=== PATIENT | male | born 1950 | race Caucasian/White ===

== ENCOUNTER 2021-03-11 20:11 | Emergency (ER) | payer MEDICARE, OTHER ==
[~2021-03-11] VITALS: Ht 172.7 cm; Wt 145.1 kg
[~2021-03-11 20:11] MED LIST: ATEN50TA PO; GLYB5TAB7 PO; METF-442 PO
[2021-03-11 20:16] VITALS: BP 160/84
--- NOTE | 2021-03-11 20:18 | NUR ---
PT AAOX4. BIBRA FROM HOME C/O R SIDED CP SINCE 1930. STATED HE WAS TAKING A NAP IN FRONT OF HIS AC. PT STATED "I JUST WANT TO MAKE SURE IT IS NOT A HEART ATTACK." IV PLACED ON RAC 20G, BLOOD WORK COLLECTED, SENT TO LAB. AWAITING ER MD FOR EVAL AND ORDERS.
[2021-03-11 20:48] LABS: BASOPHILS # (AUTO) 0.1 K/uL (0.0-0.2); BASOPHILS % (AUTO) 1.1 % (0.0-2.0); EOSINOPHILS % (AUTO) 3.9 % (0.0-6.0); HEMATOCRIT 46 % (39-51); HEMOGLOBIN 15.1 g/dL (13.5-17.5); LYMPHOCYTES # (AUTO) 2.4 K/uL (0.8-4.8); LYMPHOCYTES % (AUTO) 26.6 % (20.0-44.0); MEAN CORPUSCULAR HGB CONC 33 g/dl (31.0-36.0); MEAN CORPUSCULAR VOLUME 91 fL (80-96); MONOCYTES # (AUTO) 0.8 K/uL (0.1-1.30); MONOCYTES % (AUTO) 8.8 % (2.0-12.0); NEUTROPHILS # (AUTO) 5.5 K/uL (1.8-8.9); NEUTROPHILS % (AUTO) 59.6 % (43.0-81.0); PLATELET COUNT (AUTO) 169 K/uL (150-450); RED BLOOD CELL COUNT(AUTO) 5.07 MIL/uL (4.5-6.0); WHITE BLOOD COUNT (AUTO) 9.2 K/uL (4.3-11.0)
--- NOTE | 2021-03-11 21:04 | NUR ---
AMBULATED TO THE RESTROOM AND BACK.
[2021-03-11 21:07] LABS: CALCIUM, SERUM 9.3 mg/dL (8.5-10.1); CARBON DIOXIDE 30 mmol/L (21-32); CHLORIDE 100 mmol/L (98-107); CREATININE 1.1 mg/dL (0.6-1.3); GLUCOSE 121 mg/dL (74-106); POTASSIUM 4.5 mmol/L (3.5-5.1); SODIUM SERUM 138 mmol/L (136-145); UREA NITROGEN, BLOOD 24 mg/dL (7-18)
[2021-03-11 21:12] LABS: ALANINE AMINOTRANSFERASE 29 U/L (12-78); ALBUMIN 3.5 g/dL (3.4-5.0); ALKALINE PHOSPHATASE 66 U/L (46-116); ASPARTATE AMINOTRANSFERASE 21 U/L (15-37); BILIRUBIN,DIRECT 0.1 mg/dL (0.0-0.2); BILIRUBIN,TOTAL 0.5 mg/dL (0.2-1.0); TOTAL PROTEIN, SERUM 8.2 g/dL (6.4-8.2)
--- NOTE | 2021-03-11 21:20 | NUR ---
XRAY AT BEDSIDE
--- NOTE | 2021-03-11 22:43 | NUR ---
Patient does not wish to proceed with medical care recommended by Dr. Sanchez. Patient given information related to possible complications, up to and including , which could occur as a result of leaving the hospital at this time. Patient verbalizes understanding of risks involved due to leaving against medical advice. Patient has signed AMA form.
--- NOTE | 2021-03-11 22:43 | NUR ---
IV removed. Catheter intact and site benign. Pressure and 4x4 applied to site. No bleeding noted.
== END 2021-03-11 23:19 | disposition left against medical advice (07) ==
LOC: ER 20:12
DX: R07.89 Other chest pain (principal); E11.9 Type 2 diabetes mellitus without complications; I10 Essential (primary) hypertension; I45.10 Unspecified right bundle-branch block; I44.4 Left anterior fascicular block; E78.00 Pure hypercholesterolemia, unspecified; Z98.890 Other specified postprocedural states; Z79.899 Other long term (current) drug therapy; Z79.84 Long term (current) use of oral hypoglycemic drugs
CPT/HCPCS: 36415; 71045-TC; 80048-TC; 80076-TC; 83880; 84484-TC; 85025-TC

== ENCOUNTER 2022-08-03 08:19 | Outpatient (CLI) | payer MEDICARE, OTHER ==
[2022-08-03] MEDS ORDERED: GENTAMICIN 0.1% CREAM 15 GM TUBE ONE (09:00)
[2022-08-03] MEDS ORDERED: CLOTRIMAZOLE 1% 15 GM TUBE TP ONE (09:00)
[2022-08-03 09:27] LABS: BASOPHILS % (AUTO) 0.4 % (0.0-2.0); HEMATOCRIT 45 % (39-51); HEMOGLOBIN 14.5 g/dL (13.5-17.5); LYMPHOCYTES # (AUTO) 1.5 K/uL (0.8-4.8); LYMPHOCYTES % (AUTO) 16.6 % (20.0-44.0); MEAN CORPUSCULAR HGB CONC 32 g/dl (31.0-36.0); MEAN CORPUSCULAR VOLUME 88 fL (80-96); MONOCYTES # (AUTO) 0.7 K/uL (0.1-1.30); MONOCYTES % (AUTO) 8.3 % (2.0-12.0); NEUTROPHILS # (AUTO) 6.4 K/uL (1.8-8.9); NEUTROPHILS % (AUTO) 71.7 % (43.0-81.0); PLATELET COUNT (AUTO) 222 K/uL (150-450); RED BLOOD CELL COUNT(AUTO) 5.09 MIL/uL (4.5-6.0); WHITE BLOOD COUNT (AUTO) 8.9 K/uL (4.3-11.0)
[2022-08-03 09:43] LABS: ALBUMIN 3.2 g/dL (3.4-5.0); CALCIUM, SERUM 9.2 mg/dL (8.5-10.1); POTASSIUM 4.3 mmol/L (3.5-5.1)
[2022-08-03 09:49] LABS: C-REACTIVE PROTEIN 3.8 mg/dL (0.0-0.9)
== END 2022-08-03 23:59 | disposition home health service (06) ==
LOC: WOU 08:19
PROVIDERS: ATTEND Podiatrist Foot & Ankle Surgery
DX: I87.313 Chronic venous hypertension (idiopathic) with ulcer of bilateral lower extremity (principal); L97.212 Non-pressure chronic ulcer of right calf with fat layer exposed; L97.828 Non-pressure chronic ulcer of other part of left lower leg with other specified severity; I89.0 Lymphedema, not elsewhere classified; B35.1 Tinea unguium; E66.01 Morbid (severe) obesity due to excess calories; Z68.43 Body mass index [BMI] 50.0-59.9, adult; E11.9 Type 2 diabetes mellitus without complications; Z79.4 Long term (current) use of insulin; Z79.84 Long term (current) use of oral hypoglycemic drugs
CPT/HCPCS: 11042; 11045; 36415; 80048-TC; 82040-TC; 85025-TC; 85652-TC; 86140-TC

== ENCOUNTER 2022-08-06 08:11 | Outpatient (CLI) | payer MEDICARE, OTHER ==
[2022-08-06] MEDS ORDERED: HYDROCORTISONE 1% CREAM 28.35 GM TUBE TP ONE (08:55)
[2022-08-06] MEDS ORDERED: CLOTRIMAZOLE 1% 15 GM TUBE TP ONE (08:55)
[2022-08-06] MEDS ORDERED: GENTAMICIN 0.1% CREAM 15 GM TUBE ONE ×2 (08:56→09:24)
== END 2022-08-06 23:59 | disposition home health service (06) ==
LOC: WOU 08:11
PROVIDERS: ATTEND Podiatrist Foot & Ankle Surgery
DX: I87.313 Chronic venous hypertension (idiopathic) with ulcer of bilateral lower extremity (principal); L97.828 Non-pressure chronic ulcer of other part of left lower leg with other specified severity; L97.812 Non-pressure chronic ulcer of other part of right lower leg with fat layer exposed; I89.0 Lymphedema, not elsewhere classified; E66.01 Morbid (severe) obesity due to excess calories; Z68.43 Body mass index [BMI] 50.0-59.9, adult; E11.9 Type 2 diabetes mellitus without complications; Z79.4 Long term (current) use of insulin; Z79.84 Long term (current) use of oral hypoglycemic drugs
CPT/HCPCS: 11042

== ENCOUNTER 2022-08-10 08:07 | Outpatient (CLI) | payer MEDICARE, OTHER ==
[2022-08-10] MEDS ORDERED: GENTAMICIN 0.1% CREAM 15 GM TUBE ONE ×2 (09:13)
== END 2022-08-10 23:59 | disposition home health service (06) ==
LOC: WOU 08:07
PROVIDERS: ATTEND Podiatrist Foot & Ankle Surgery
DX: I87.313 Chronic venous hypertension (idiopathic) with ulcer of bilateral lower extremity (principal); L97.828 Non-pressure chronic ulcer of other part of left lower leg with other specified severity; L97.812 Non-pressure chronic ulcer of other part of right lower leg with fat layer exposed; I89.0 Lymphedema, not elsewhere classified; L03.115 Cellulitis of right lower limb; E66.01 Morbid (severe) obesity due to excess calories; Z68.43 Body mass index [BMI] 50.0-59.9, adult; E11.9 Type 2 diabetes mellitus without complications; Z79.4 Long term (current) use of insulin; Z79.84 Long term (current) use of oral hypoglycemic drugs
CPT/HCPCS: G0463

== ENCOUNTER 2022-08-13 08:00 | Outpatient (CLI) | payer MEDICARE, OTHER | END 2022-08-13 23:59 | disposition home or self-care (01) | LOC: WOU 08:00 | PROVIDERS: ATTEND Podiatrist Foot & Ankle Surgery | DX: I87.313 Chronic venous hypertension (idiopathic) with ulcer of bilateral lower extremity (principal); L97.828 Non-pressure chronic ulcer of other part of left lower leg with other specified severity; L97.812 Non-pressure chronic ulcer of other part of right lower leg with fat layer exposed; I89.0 Lymphedema, not elsewhere classified; L03.115 Cellulitis of right lower limb; B96.5 Pseudomonas (aeruginosa) (mallei) (pseudomallei) as the cause of diseases classified elsewhere; E66.01 Morbid (severe) obesity due to excess calories; Z68.43 Body mass index [BMI] 50.0-59.9, adult; L60.2 Onychogryphosis; B35.1 Tinea unguium; E11.9 Type 2 diabetes mellitus without complications; Z79.4 Long term (current) use of insulin; Z79.84 Long term (current) use of oral hypoglycemic drugs | CPT/HCPCS: 29580; 29580-50; G0463 ==

== ENCOUNTER 2022-08-17 08:09 | Outpatient (CLI) | payer MEDICARE, OTHER | END 2022-08-17 23:59 | disposition home or self-care (01) | LOC: WOU 08:09 | PROVIDERS: ATTEND Podiatrist Foot & Ankle Surgery | DX: I87.313 Chronic venous hypertension (idiopathic) with ulcer of bilateral lower extremity (principal); L97.828 Non-pressure chronic ulcer of other part of left lower leg with other specified severity; L97.812 Non-pressure chronic ulcer of other part of right lower leg with fat layer exposed; I89.0 Lymphedema, not elsewhere classified; L60.2 Onychogryphosis; B35.1 Tinea unguium; E66.01 Morbid (severe) obesity due to excess calories; Z68.43 Body mass index [BMI] 50.0-59.9, adult; L84 Corns and callosities; E11.9 Type 2 diabetes mellitus without complications; Z79.4 Long term (current) use of insulin; Z79.84 Long term (current) use of oral hypoglycemic drugs | CPT/HCPCS: 29580; A6197 ×2 ==

== ENCOUNTER 2022-08-24 08:33 | Outpatient (CLI) | payer MEDICARE, OTHER | END 2022-08-24 23:59 | disposition home health service (06) | LOC: WOU 08:33 | PROVIDERS: ATTEND Podiatrist Foot & Ankle Surgery | DX: I87.311 Chronic venous hypertension (idiopathic) with ulcer of right lower extremity (principal); L97.212 Non-pressure chronic ulcer of right calf with fat layer exposed; I89.0 Lymphedema, not elsewhere classified; E66.01 Morbid (severe) obesity due to excess calories; Z68.43 Body mass index [BMI] 50.0-59.9, adult; L60.2 Onychogryphosis; B35.1 Tinea unguium; E11.9 Type 2 diabetes mellitus without complications; Z79.4 Long term (current) use of insulin; Z79.84 Long term (current) use of oral hypoglycemic drugs | CPT/HCPCS: 11042; A6197 ×3; A6454 ==

== ENCOUNTER 2022-08-31 08:23 | Outpatient (CLI) | payer MEDICARE, OTHER ==
[2022-08-31] MEDS ORDERED: SILVER NITRATE APPLICATOR 1 EA BOX ONE (08:26)
[2022-08-31] MEDS ORDERED: UREA 10% -AHA 4% CREAM 57 GM TUBE ONE (08:32)
[2022-08-31] MEDS ORDERED: MUPIROCIN 2% CREAM 15 GM TUBE TP ONE (08:32)
[2022-08-31] MEDS ORDERED: HYDROCORTISONE 1% CREAM 28.35 GM TUBE TP ONE (08:33)
== END 2022-08-31 23:59 | disposition home health service (06) ==
LOC: WOU 08:23
PROVIDERS: ATTEND Podiatrist Foot & Ankle Surgery
DX: I87.313 Chronic venous hypertension (idiopathic) with ulcer of bilateral lower extremity (principal); L97.828 Non-pressure chronic ulcer of other part of left lower leg with other specified severity; L97.812 Non-pressure chronic ulcer of other part of right lower leg with fat layer exposed; I89.0 Lymphedema, not elsewhere classified; B35.1 Tinea unguium; L60.2 Onychogryphosis; E66.01 Morbid (severe) obesity due to excess calories; E11.9 Type 2 diabetes mellitus without complications; Z79.4 Long term (current) use of insulin; Z79.84 Long term (current) use of oral hypoglycemic drugs; Z68.43 Body mass index [BMI] 50.0-59.9, adult
CPT/HCPCS: 17250; 29580

== ENCOUNTER 2022-09-03 08:08 | Outpatient (CLI) | payer MEDICARE, OTHER ==
[2022-09-03] MEDS ORDERED: HYDROCORTISONE 1% CREAM 28.35 GM TUBE TP ONE (09:17)
[2022-09-03] MEDS ORDERED: UREA 10% -AHA 4% CREAM 57 GM TUBE ONE (09:18)
[2022-09-03] MEDS ORDERED: MUPIROCIN 2% CREAM 15 GM TUBE TP ONE (09:20)
[2022-09-03] MEDS ORDERED: SILVER NITRATE APPLICATOR 1 EA BOX ONE (10:00)
== END 2022-09-03 23:59 | disposition home health service (06) ==
LOC: WOU 08:08
PROVIDERS: ATTEND Podiatrist Foot & Ankle Surgery
DX: I87.313 Chronic venous hypertension (idiopathic) with ulcer of bilateral lower extremity (principal); L97.828 Non-pressure chronic ulcer of other part of left lower leg with other specified severity; L97.812 Non-pressure chronic ulcer of other part of right lower leg with fat layer exposed; E66.01 Morbid (severe) obesity due to excess calories; Z68.43 Body mass index [BMI] 50.0-59.9, adult; I89.0 Lymphedema, not elsewhere classified; E11.9 Type 2 diabetes mellitus without complications; Z79.4 Long term (current) use of insulin; Z79.84 Long term (current) use of oral hypoglycemic drugs; L60.2 Onychogryphosis; B35.1 Tinea unguium
CPT/HCPCS: 17250; 29580

== ENCOUNTER 2022-09-07 08:06 | Outpatient (CLI) | payer MEDICARE, OTHER ==
[2022-09-07] MEDS ORDERED: MUPIROCIN 2% CREAM 15 GM TUBE TP ONE (08:23)
[2022-09-07] MEDS ORDERED: HYDROCORTISONE 1% CREAM 28.35 GM TUBE TP ONE (08:23)
[2022-09-07] MEDS ORDERED: UREA 10% -AHA 4% CREAM 57 GM TUBE ONE (08:23)
== END 2022-09-07 23:59 | disposition home health service (06) ==
LOC: WOU 08:06
PROVIDERS: ATTEND Podiatrist Foot & Ankle Surgery
DX: I87.313 Chronic venous hypertension (idiopathic) with ulcer of bilateral lower extremity (principal); L97.828 Non-pressure chronic ulcer of other part of left lower leg with other specified severity; L97.812 Non-pressure chronic ulcer of other part of right lower leg with fat layer exposed; L97.212 Non-pressure chronic ulcer of right calf with fat layer exposed; I89.0 Lymphedema, not elsewhere classified; E66.01 Morbid (severe) obesity due to excess calories; Z68.43 Body mass index [BMI] 50.0-59.9, adult; E11.9 Type 2 diabetes mellitus without complications; Z79.4 Long term (current) use of insulin; Z79.84 Long term (current) use of oral hypoglycemic drugs; L60.2 Onychogryphosis; B35.1 Tinea unguium
CPT/HCPCS: 11042; 17250; 29580; A6454

== ENCOUNTER 2022-09-10 08:13 | Outpatient (CLI) | payer MEDICARE, OTHER ==
[2022-09-10] MEDS ORDERED: MUPIROCIN 2% CREAM 15 GM TUBE TP ONE (08:23)
[2022-09-10] MEDS ORDERED: SILVER NITRATE APPLICATOR 1 EA BOX ONE (08:27)
[2022-09-10 09:03] LABS: BASOPHILS # (AUTO) 0.1 K/uL (0.0-0.2); BASOPHILS % (AUTO) 1.2 % (0.0-2.0); EOSINOPHILS % (AUTO) 7.8 % (0.0-6.0); HEMATOCRIT 44 % (39-51); HEMOGLOBIN 14.3 g/dL (13.5-17.5); LYMPHOCYTES # (AUTO) 1.2 K/uL (0.8-4.8); LYMPHOCYTES % (AUTO) 15.7 % (20.0-44.0); MEAN CORPUSCULAR HGB CONC 32 g/dl (31.0-36.0); MEAN CORPUSCULAR VOLUME 87 fL (80-96); MONOCYTES # (AUTO) 0.8 K/uL (0.1-1.30); MONOCYTES % (AUTO) 10.4 % (2.0-12.0); NEUTROPHILS # (AUTO) 5.1 K/uL (1.8-8.9); NEUTROPHILS % (AUTO) 64.9 % (43.0-81.0); PLATELET COUNT (AUTO) 186 K/uL (150-450); RED BLOOD CELL COUNT(AUTO) 5.11 MIL/uL (4.5-6.0); WHITE BLOOD COUNT (AUTO) 7.9 K/uL (4.3-11.0)
[2022-09-10 09:18] LABS: ALBUMIN 3.2 g/dL (3.4-5.0); CALCIUM, SERUM 8.9 mg/dL (8.5-10.1); CREATININE 0.9 mg/dL (0.6-1.3); POTASSIUM 4.5 mmol/L (3.5-5.1)
[2022-09-10 09:30] LABS: C-REACTIVE PROTEIN 5.4 mg/dL (0.0-0.9)
== END 2022-09-10 23:59 | disposition home health service (06) ==
LOC: WOU 08:13
PROVIDERS: ATTEND Podiatrist Foot & Ankle Surgery
DX: I87.2 Venous insufficiency (chronic) (peripheral) (principal); I87.313 Chronic venous hypertension (idiopathic) with ulcer of bilateral lower extremity; L97.818 Non-pressure chronic ulcer of other part of right lower leg with other specified severity; L97.218 Non-pressure chronic ulcer of right calf with other specified severity; L97.828 Non-pressure chronic ulcer of other part of left lower leg with other specified severity; I89.0 Lymphedema, not elsewhere classified; E66.01 Morbid (severe) obesity due to excess calories; Z68.43 Body mass index [BMI] 50.0-59.9, adult; E11.9 Type 2 diabetes mellitus without complications; Z79.4 Long term (current) use of insulin; Z79.84 Long term (current) use of oral hypoglycemic drugs; L60.2 Onychogryphosis; B35.1 Tinea unguium
CPT/HCPCS: 29580-50; 36415; 80048-TC; 82040-TC; 85025-TC; 85652-TC; 86140-TC

== ENCOUNTER 2022-09-14 08:04 | Outpatient (CLI) | payer MEDICARE, OTHER ==
[2022-09-14] MEDS ORDERED: SILVER NITRATE APPLICATOR 1 EA BOX ONE (08:23)
[2022-09-14] MEDS ORDERED: MUPIROCIN 2% CREAM 15 GM TUBE TP ONE (08:41)
== END 2022-09-14 23:59 | disposition home health service (06) ==
LOC: WOU 08:04
PROVIDERS: ATTEND Podiatrist Foot & Ankle Surgery
DX: I87.313 Chronic venous hypertension (idiopathic) with ulcer of bilateral lower extremity (principal); L97.828 Non-pressure chronic ulcer of other part of left lower leg with other specified severity; L97.818 Non-pressure chronic ulcer of other part of right lower leg with other specified severity; I89.0 Lymphedema, not elsewhere classified; E66.01 Morbid (severe) obesity due to excess calories; Z68.43 Body mass index [BMI] 50.0-59.9, adult; L60.2 Onychogryphosis; B35.1 Tinea unguium; E11.9 Type 2 diabetes mellitus without complications; Z79.4 Long term (current) use of insulin; Z79.84 Long term (current) use of oral hypoglycemic drugs
CPT/HCPCS: 17250; 29580; A6454

== ENCOUNTER 2022-09-17 08:00 | Outpatient (CLI) | payer MEDICARE, OTHER ==
[2022-09-17] MEDS ORDERED: UREA 10% -AHA 4% CREAM 57 GM TUBE ONE (08:24)
[2022-09-17] MEDS ORDERED: HYDROCORTISONE 1% CREAM 28.35 GM TUBE TP ONE (08:25)
[2022-09-17] MEDS ORDERED: MUPIROCIN 2% CREAM 15 GM TUBE TP ONE (08:25)
== END 2022-09-17 23:59 | disposition home health service (06) ==
LOC: WOU 08:00
PROVIDERS: ATTEND Podiatrist Foot & Ankle Surgery
DX: I87.2 Venous insufficiency (chronic) (peripheral) (principal); I89.0 Lymphedema, not elsewhere classified; E66.01 Morbid (severe) obesity due to excess calories; Z68.43 Body mass index [BMI] 50.0-59.9, adult; L60.2 Onychogryphosis; B35.1 Tinea unguium; E11.9 Type 2 diabetes mellitus without complications; Z79.4 Long term (current) use of insulin; Z79.84 Long term (current) use of oral hypoglycemic drugs
CPT/HCPCS: 29580-50

== ENCOUNTER 2022-09-21 08:10 | Outpatient (CLI) | payer MEDICARE, OTHER ==
[2022-09-21] MEDS ORDERED: UREA 10% -AHA 4% CREAM 57 GM TUBE ONE (08:25)
== END 2022-09-21 23:59 | disposition home health service (06) ==
LOC: WOU 08:10
PROVIDERS: ATTEND Podiatrist Foot & Ankle Surgery
DX: I89.0 Lymphedema, not elsewhere classified (principal); L60.2 Onychogryphosis; B35.1 Tinea unguium; E66.01 Morbid (severe) obesity due to excess calories; Z68.43 Body mass index [BMI] 50.0-59.9, adult; E11.9 Type 2 diabetes mellitus without complications; Z79.4 Long term (current) use of insulin; Z79.84 Long term (current) use of oral hypoglycemic drugs
CPT/HCPCS: 29580-50; A6454

== ENCOUNTER 2025-05-10 10:44 | Outpatient (CLI) | payer MEDICARE, OTHER ==
[2025-05-10] MEDS ORDERED: UREA 10% -AHA 4% CREAM 57 GM TUBE ONE (10:56)
[2025-05-10] MEDS ORDERED: HYDROCORTISONE 1% CREAM 28.35 GM TUBE TP ONE (10:56)
[2025-05-10] MEDS ORDERED: CLOTRIMAZOLE 1% 15 GM TUBE TP ONE (10:58)
== END 2025-05-10 23:59 | disposition home or self-care (01) ==
LOC: WOU 10:44
PROVIDERS: ATTEND Podiatrist Foot & Ankle Surgery
DX: I89.0 Lymphedema, not elsewhere classified (principal); L60.2 Onychogryphosis; B35.1 Tinea unguium; E66.01 Morbid (severe) obesity due to excess calories; Z68.43 Body mass index [BMI] 50.0-59.9, adult; D21.21 Benign neoplasm of connective and other soft tissue of right lower limb, including hip; E11.9 Type 2 diabetes mellitus without complications; Z79.4 Long term (current) use of insulin; Z79.84 Long term (current) use of oral hypoglycemic drugs; L20.89 Other atopic dermatitis
CPT/HCPCS: 29580; 11721; A6454

== ENCOUNTER 2025-06-07 10:33 | Outpatient (CLI) | payer MEDICARE, OTHER ==
[2025-06-07] MEDS ORDERED: UREA 10% -AHA 4% CREAM 57 GM TUBE ONE (10:50)
[2025-06-07] MEDS ORDERED: HYDROCORTISONE 1% CREAM 28.35 GM TUBE TP ONE (10:50)
[2025-06-07] MEDS ORDERED: CLOTRIMAZOLE 1% 15 GM TUBE TP ONE (10:50)
== END 2025-06-07 23:59 | disposition home or self-care (01) ==
LOC: WOU 10:33
PROVIDERS: ATTEND Podiatrist Foot & Ankle Surgery
DX: I89.0 Lymphedema, not elsewhere classified (principal); E66.01 Morbid (severe) obesity due to excess calories; Z68.43 Body mass index [BMI] 50.0-59.9, adult; I87.2 Venous insufficiency (chronic) (peripheral); E11.40 Type 2 diabetes mellitus with diabetic neuropathy, unspecified; Z79.4 Long term (current) use of insulin; Z79.84 Long term (current) use of oral hypoglycemic drugs; L60.2 Onychogryphosis; B35.1 Tinea unguium; D21.21 Benign neoplasm of connective and other soft tissue of right lower limb, including hip; L20.89 Other atopic dermatitis; M79.81 Nontraumatic hematoma of soft tissue
CPT/HCPCS: 29580; A6454